=== PATIENT | male | born 1980 | race Caucasian/White ===

== ENCOUNTER → 2017-09-25 | Outpatient (CLI) | payer BC ==
[~2017-09-25] MED LIST: B12,B-12,B 12500 MC1 PO; GABAPENTIN800 MG PO; NORVASC2.5 MG PO; OMEPRAZOLE MAGN20 MG PO
[2017-09-25 14:53] LABS: HEMATOCRIT 51.4 % (42.0-52.0); HEMOGLOBIN 17.9 g/dl (14.0-18.0); MEAN CELL VOLUME 96.8 fl (80.0-94.0); MEAN CORPUSCULAR HGB 33.7 pg (27.0-31.0); MEAN CORPUSCULAR HGB CONC 34.8 g/dl (33.0-37.0); MEAN PLATELET VOLUME 10.6 fl (9.6-12.3); RED BLOOD COUNT 5.31 10*6/uL (4.50-5.90); RED CELL DISTRI WIDTH 12.7 % (0-14.5); WHITE BLOOD COUNT 6.1 10*3/uL (4.8-10.8)
[2017-09-25 15:26] LABS: CHLORIDE 107 mmol/L (98-107); POTASSIUM 4.1 mmol/L (3.5-5.1); SODIUM 140 mmol/L (136-145)
[2017-09-25 15:47] LABS: ALKALINE PHOSPHATASE 74 U/L (45-117); BUN 21 mg/dl (7-24); CHOLESTEROL 166 mg/dL (<200); CREATININE 1.58 mg/dL (0.70-1.30); HDL CHOLESTEROL 40 mg/dl (40-60); LDL CHOLESTEROL 105 mg/dL (9-159); SGOT/AST 17 IU/L (3-35); SGPT/ALT 39 U/L (12-78); TOTAL PROTEIN 7.5 gm/dL (6.4-8.2); TRIGLYCERIDES 104 mg/dl (<150); VLDL CHOLESTEROL 21 mg/dL (6-40)
== END | disposition home or self-care (01) ==
LOC: LAB 14:15
PROVIDERS: Family Medicine
DX: R53.83 Other fatigue (principal); J45.909 Unspecified asthma, uncomplicated

== ENCOUNTER 2019-02-05 15:27 | Inpatient (IN) | payer BC ==
[2019-02-05] VITALS: BP 117/74
[~2019-02-05] VITALS: Ht 193 cm; Wt 113.6 kg
[2019-02-05 15:28] VITALS: BP 119/84
[2019-02-05 16:11] LABS: ALBUMIN 3.5 gm/dl (3.1-4.5); CREATININE 2.27 mg/dL (0.70-1.30); POTASSIUM 3.9 mmol/L (3.5-5.1); TOTAL PROTEIN 7.5 gm/dL (6.4-8.2)
[2019-02-05 16:11] LABS: BILIRUBIN 1+ (NEGATIVE); BLOOD TRACE-INTACT (NEGATIVE); CLARITY SL CLOUDY (CLEAR); COLOR YELLOW (YELLOW); GLUCOSE NEGATIVE (NEGATIVE); KETONE NEGATIVE (NEGATIVE); LEUKO ESTERASE NEGATIVE (NEGATIVE); NITRITE NEGATIVE (NEGATIVE); PH 5.5 (5.0-9.0); SPECIFIC GRAVITY 1.025 (1.005-1.030); UROBILINOGEN 0.2 E.U./dl (0.2-1.0)
[2019-02-05 16:20] LABS: BACTERIA 2+; COARSE GRANULAR CAST 0-2; EPITHELIAL CELLS 0-2
[2019-02-05 16:23] LABS: BASO % 0.4 % (0.0-1.0); EOS # 0.1 10*3/uL (0.0-0.4); EOS % 2.8 % (1.0-4.0); HEMATOCRIT 53.7 % (42.0-52.0); HEMOGLOBIN 19.2 g/dl (14.0-18.0); LYMPH # 0.9 10*3/uL (1.3-4.4); MEAN CELL VOLUME 92.4 fl (80.0-94.0); MEAN CORPUSCULAR HGB CONC 35.8 g/dl (33.0-37.0); MEAN PLATELET VOLUME 11.4 fl (9.6-12.3); MONO # 0.7 10*3/uL (0.1-1.0); MONO % 15.3 % (3.0-9.0); NEUT # 2.8 10*3/uL (2.3-7.9); NEUT % 61.3 % (47.0-73.0); PLATELET COUNT AUTOMATED 172 10*3/uL (130-400); RED BLOOD COUNT 5.81 10*6/uL (4.50-5.90); RED CELL DISTRI WIDTH 13.1 % (0-14.5); WHITE BLOOD COUNT 4.6 10*3/uL (4.8-10.8)
[2019-02-05 16:30] VITALS: BP 124/78
[2019-02-05 17:20] VITALS: BP 120/90
--- NOTE | 2019-02-05 17:57 | NUR ---
PHYSICIAN WAS NOTIFIED OF DR. PONCE CONSULT. RESPONSE OF NOTIFICATION WAS OK WE WILL SEE HIM IN THE MORNING. NEW ORDERS RECEIVED FOR URINES. PAM DOMINGO
[2019-02-05 20:00] VITALS: BP 117/74
[2019-02-06] VITALS: BP 103/66
[2019-02-06 07:20] LABS: CREATININE 1.98 mg/dL (0.70-1.30); POTASSIUM 3.7 mmol/L (3.5-5.1)
--- NOTE | 2019-02-06 07:40 | NUR ---
PHYSICIAN WAS NOTIFIED OF DR. RAPP CONSULT. RESPONSE OF NOTIFICATION WAS EDG AND COLONOSCOPY 02/07/19, NPO AFTER MIDNIGHT AND COLONIC PROTOCOL. KIRT MAY
[2019-02-06 08:00] VITALS: BP 120/79
[2019-02-06 12:00] VITALS: BP 120/79
--- NOTE | 2019-02-06 14:10 | NUR ---
DR LORENZO NOTIFIED OF POSITIVE CRYPTO IN STOOL. NEW ORDER FOR HIV PANEL AND TO PLACE PATIENT IN ISOLATION. ALSO TO NOTIFY DR RAPP.
[2019-02-06 16:00] VITALS: BP 131/74
--- NOTE | 2019-02-06 16:10 | NUR ---
SPOKE TO DR RAPP REGARDING CRYPTO IN STOOL. NEW ORDER RECEIVED TO CANCEL EGD/COLO AND ORDER A REGULAR DIET.
[2019-02-06 20:00] VITALS: BP 116/58
--- NOTE | 2019-02-06 21:09 | NUR ---
SPOKE WITH DR LORENZO ABOUT PT'S COMPLAINT OF NAUSEA. ORDERS RECEIVED. CONTINUE TO MONITOR THE PT.
--- NOTE | 2019-02-06 21:35 | NUR ---
PRN ZOFRAN GIVEN FOR COMPLAINTS OF NAUSEA. WILL MONITOR FOR EFFECTIVENESS.
--- NOTE | 2019-02-06 22:20 | NUR ---
RE-EVALUATED. PRN ZOFRAN EFFECTIVE.
[2019-02-07] VITALS: BP 111/57
--- NOTE | 2019-02-07 01:30 | NUR ---
PATIENT NEURONTIN TIME READJUSTED PER PATIENTS REQUEST D/T HOW HE TAKES AT HOME. MEDS READJUSTED PER WISHES
--- NOTE | 2019-02-07 04:00 | NUR ---
SLEEPING, NO DISTRESS NOTED, CALL LIGHT WIHTIN REACH
--- NOTE | 2019-02-07 04:14 | NUR ---
24 HR chart check completed.
[2019-02-07 08:00] VITALS: BP 133/77
--- NOTE | 2019-02-07 08:00 | NUR ---
IN TO ROOM. PATIENT AWAKE, ALERT AND ORIENTED WITH A FLAT AFFECT. PT COMPLAINS OF DIARRHEA BUT STATES THAT IT HAS IMPROVED FROM PREVIOUS DAYS. NO S/S OF DISTRESS OR SOB NOTED. BED IN LOWEST LOCKED POSITION AND CALL LIGHT WITHIN REACH. WILL CONTINUE TO MONITOR.
--- NOTE | 2019-02-07 09:26 | NUR ---
DR. JONAS'S OFFICE NOTIFIED OF CONSULT.
--- NOTE | 2019-02-07 10:30 | NUR ---
Primer Supervisor in to talk to patient. Patient states lives at home with his girlfriend or with his parents. There are 12 steps in the home. Physician: Dr. Cortes Hanson [facility] Home health services: none Patient's level of ADLs: INDEPENDENT Patient has working utilities: yes DME: none Follow-up physician's appointment after d/c: he prefers to make his own follow up appt after discharge Does patient want to access PORTAL?: no Discharge plan discussed with patient. He lives at home with either his parents or his girlfriend. He is independent in his ADLs and ambulation. Discussed home health care services and he denies any home needs. When medically stable he will be discharged to home. His parents will provide transportation on discharge. JO-ANN VILLANUEVA
[2019-02-07 12:00] VITALS: BP 121/74
[2019-02-07 16:00] VITALS: BP 117/72
[2019-02-07 20:00] VITALS: BP 111/81
[2019-02-08] VITALS: BP 102/60
--- NOTE | 2019-02-08 05:09 | NUR ---
24 HR chart check completed.
[2019-02-08 07:24] LABS: CHLORIDE 109 mmol/L (98-107); POTASSIUM 3.1 mmol/L (3.5-5.1); SODIUM 138 mmol/L (136-145)
[2019-02-08 07:33] LABS: CREATININE 1.27 mg/dL (0.70-1.30); PHOSPHOROUS 1.8 mg/dL (2.5-4.9)
[2019-02-08 07:39] LABS: BUN 13 mg/dl (7-24)
[2019-02-08 08:00] VITALS: BP 122/67
[2019-02-08 08:06] LABS: HEPATITIS B SURFACE AB 006395 Non Reactive (.); HEPATITIS B SURFACE AG Negative (Negative); HEPATITIS C AB <0.1 (0.0-0.9)
[2019-02-08] MEDS ORDERED: ALINIA500 MG PO (08:26)
[2019-02-08] MEDS ORDERED: K-TAB10 MEQ PO (08:40)
[2019-02-08 12:00] VITALS: BP 117/84
[2019-02-08 12:09] LABS: CREATININE,URINE 119.5 mg/dL (Not Estab.); MICRO ALBUMIN/CRE RATIO 11.4 (0.0-30.0)
[2019-02-08 16:00] VITALS: BP 129/78
--- NOTE | 2019-02-08 16:43 | NUR ---
Discharge instructions reviewed with patient/family. Patient receptive and verbalizes understanding. Follow-up care arranged. Written instructions given to patient/family. VIKI MALLORY
== END 2019-02-08 16:43 | disposition home or self-care (01) | DRG 683 ==
LOC: ED 15:27 → EDHOLD 16:41 → 4E 16:41
PROVIDERS: Emergency Medicine; Internal Medicine Nephrology; ADMIT Internal Medicine
DX: N17.9 Acute kidney failure, unspecified (principal); A07.2 Cryptosporidiosis; Q60.0 Renal agenesis, unilateral; E87.1 Hypo-osmolality and hyponatremia; E86.0 Dehydration; G89.29 Other chronic pain; D72.819 Decreased white blood cell count, unspecified; D75.1 Secondary polycythemia; K21.9 Gastro-esophageal reflux disease without esophagitis; M54.5 Low back pain; K52.9 Noninfective gastroenteritis and colitis, unspecified; E83.39 Other disorders of phosphorus metabolism; I12.9 Hypertensive chronic kidney disease with stage 1 through stage 4 chronic kidney disease, or unspecified chronic kidney disease; N18.3 Chronic kidney disease, stage 3 (moderate); R80.9 Proteinuria, unspecified; E87.6 Hypokalemia; M54.9 Dorsalgia, unspecified; M89.9 Disorder of bone, unspecified; E86.9 Volume depletion, unspecified; E87.5 Hyperkalemia; Z79.899 Other long term (current) drug therapy; Z88.0 Allergy status to penicillin; Z83.3 Family history of diabetes mellitus; Z82.49 Family history of ischemic heart disease and other diseases of the circulatory system; Z84.89 Family history of other specified conditions

== ENCOUNTER → 2019-02-22 | Outpatient (CLI) | payer BC ==
[~2019-02-22] MED LIST changes: +ALINIA500 MG PO; +K-TAB10 MEQ PO
[2019-02-22 16:54] LABS: HEMATOCRIT 50.5 % (42.0-52.0); HEMOGLOBIN 17.5 g/dl (14.0-18.0); MEAN CELL VOLUME 95.8 fl (80.0-94.0); MEAN CORPUSCULAR HGB 33.2 pg (27.0-31.0); MEAN CORPUSCULAR HGB CONC 34.7 g/dl (33.0-37.0); MEAN PLATELET VOLUME 10.8 fl (9.6-12.3); RED BLOOD COUNT 5.27 10*6/uL (4.50-5.90); RED CELL DISTRI WIDTH 12.7 % (0-14.5); WHITE BLOOD COUNT 5.7 10*3/uL (4.8-10.8)
[2019-02-22 17:25] LABS: ALBUMIN 3.4 gm/dl (3.1-4.5); ALKALINE PHOSPHATASE 75 U/L (45-117); BUN 17 mg/dl (7-24); CHLORIDE 106 mmol/L (98-107); CHOLESTEROL 179 mg/dL (<200); CREATININE 1.57 mg/dL (0.70-1.30); HDL CHOLESTEROL 29 mg/dl (40-60); LDL CHOLESTEROL 104 mg/dL (9-159); POTASSIUM 4.3 mmol/L (3.5-5.1); SGOT/AST 27 IU/L (3-35); SGPT/ALT 73 U/L (12-78); SODIUM 138 mmol/L (136-145); TRIGLYCERIDES 231 mg/dl (<150); VLDL CHOLESTEROL 46 mg/dL (6-40)
== END | disposition home or self-care (01) ==
LOC: LAB 16:00
PROVIDERS: Family Medicine
DX: D75.1 Secondary polycythemia (principal); N18.3 Chronic kidney disease, stage 3 (moderate)

== ENCOUNTER → 2019-04-22 | Outpatient (CLI) | payer BC ==
[2019-04-22 17:01] LABS: ALBUMIN 3.8 gm/dl (3.1-4.5); CREATININE 1.71 mg/dL (0.70-1.30); PHOSPHOROUS 1.7 mg/dL (2.5-4.9); POTASSIUM 4.5 mmol/L (3.5-5.1)
== END | disposition home or self-care (01) ==
LOC: LAB 14:17
PROVIDERS: Nurse Practitioner Family
DX: I12.9 Hypertensive chronic kidney disease with stage 1 through stage 4 chronic kidney disease, or unspecified chronic kidney disease (principal); N18.3 Chronic kidney disease, stage 3 (moderate)

== ENCOUNTER → 2020-02-22 | Outpatient (CLI) | payer BC ==
[2020-02-22 16:50] LABS: HEMATOCRIT 52.7 % (42.0-52.0); MEAN CELL VOLUME 97.8 fl (80.0-94.0); MEAN CORPUSCULAR HGB 33.8 pg (27.0-31.0); MEAN CORPUSCULAR HGB CONC 34.5 g/dl (33.0-37.0); MEAN PLATELET VOLUME 10.8 fl (9.6-12.3); RED BLOOD COUNT 5.39 10*6/uL (4.50-5.90); RED CELL DISTRI WIDTH 12.7 % (0-14.5); WHITE BLOOD COUNT 6.9 10*3/uL (4.8-10.8)
[2020-02-22 17:23] LABS: ALBUMIN 3.9 gm/dl (3.1-4.5); CREATININE 1.64 mg/dL (0.70-1.30); POTASSIUM 4.2 mmol/L (3.5-5.1); TOTAL PROTEIN 7.8 gm/dL (6.4-8.2)
== END | disposition home or self-care (01) ==
LOC: LAB 16:11
PROVIDERS: ATTEND Family Medicine
DX: N18.30 Chronic kidney disease, stage 3 unspecified (principal)

== ENCOUNTER → 2020-05-25 | Outpatient (CLI) | payer BC | END | disposition home or self-care (01) | LOC: LAB 14:45 | PROVIDERS: ATTEND Family Medicine | DX: R80.9 Proteinuria, unspecified (principal) ==

== ENCOUNTER → 2021-04-08 | Outpatient (CLI) | payer BC | END | disposition home or self-care (01) | LOC: COVID19 16:41 | PROVIDERS: ATTEND Internal Medicine | DX: U07.1 COVID-19 (principal) ==

== ENCOUNTER 2023-02-13 03:33 | Emergency (ER) | payer BC ==
[~2023-02-13] VITALS: Ht 193 cm; Wt 108.9 kg
[2023-02-13] MEDS ORDERED: COZAAR25 M1 PO (03:42)
[2023-02-13] MEDS ORDERED: CYCLOBENZAPRINE10 MG PO (05:10)
== END 2023-02-13 05:31 | disposition home or self-care (01) ==
LOC: ED 03:33
DX: M54.50 Low back pain, unspecified (principal); K21.9 Gastro-esophageal reflux disease without esophagitis; I10 Essential (primary) hypertension; Z88.0 Allergy status to penicillin

== ENCOUNTER → 2023-11-11 | Outpatient (CLI) | payer BC ==
[~2023-11-11] MED LIST changes: +COZAAR25 M1 PO; +CYCLOBENZAPRINE10 MG PO
[2023-11-11 13:13] LABS: POTASSIUM 4.4 mmol/L (3.4-5.1)
[2023-11-11 13:16] LABS: VITAMIN D, 25-HYDROXY 14.1 ng/mL (30-100)
[2023-11-11 14:22] LABS: HEMATOCRIT 45.8 % (42.0-52.0); MEAN CELL VOLUME 101.8 fl (80.0-94.0); MEAN CORPUSCULAR HGB 35.1 pg (27.0-31.0); MEAN CORPUSCULAR HGB CONC 34.5 g/dl (33.0-37.0); MEAN PLATELET VOLUME 10.6 fl (9.6-12.3); RED BLOOD COUNT 4.5 10*6/uL (4.50-5.90); RED CELL DISTRI WIDTH 12.9 % (0-14.5); WHITE BLOOD COUNT 6.1 10*3/uL (4.8-10.8)
== END | disposition home or self-care (01) ==
LOC: LAB 12:17
PROVIDERS: ATTEND Family Medicine
DX: Z00.00 Encounter for general adult medical examination without abnormal findings (principal); K21.9 Gastro-esophageal reflux disease without esophagitis; R53.83 Other fatigue; E03.9 Hypothyroidism, unspecified

== ENCOUNTER 2024-09-12 13:39 | Emergency (ER) | payer BC ==
[~2024-09-12] VITALS: Ht 193 cm; Wt 113.4 kg
[2024-09-12] MEDS ORDERED: Tdap Vaccine 0.5 ML SYR (Adult Vaccine) IM ONE (14:10)
[2024-09-12] MEDS ORDERED: MORPHINE Sulfate 2 MG/ML SYR IM ONE (14:10)
[2024-09-12] MEDS ORDERED: ceFAZolin sodium 1 GM VIAL IM ONE (16:20)
[2024-09-12] MEDS ORDERED: ceFAZolin sodium/sodium chlor 20 ML IV ONE (17:20)
== END 2024-09-12 18:47 | disposition short-term general hospital (02) ==
LOC: ED 13:39
DX: S02.92XA Unspecified fracture of facial bones, initial encounter for closed fracture (principal); I10 Essential (primary) hypertension; K21.9 Gastro-esophageal reflux disease without esophagitis; Z79.899 Other long term (current) drug therapy; Z88.0 Allergy status to penicillin; W10.8XXA Fall (on) (from) other stairs and steps, initial encounter; Y93.89 Activity, other specified; Y92.89 Other specified places as the place of occurrence of the external cause; Y99.8 Other external cause status